=== PATIENT | male | born 2000 | race Caucasian/White ===

== ENCOUNTER 2021-03-31 07:39 | Emergency (ER) | payer MEDICAID ==
[~2021-03-31] VITALS: Ht 177.8 cm; Wt 69.9 kg
[2021-03-31 09:44] VITALS: BP 140/87
[2021-03-31] MEDS ORDERED: TOPUD PO (10:15)
== END 2021-03-31 10:29 | disposition home or self-care (01) ==
LOC: ER 07:39
DX: Z20.822 Contact with and (suspected) exposure to COVID-19 (principal)
CPT/HCPCS: 87426; 99283

== ENCOUNTER 2021-05-13 15:39 | Inpatient (IN) | payer MEDICAID ==
[~2021-05-13] VITALS: Ht 177.8 cm; Wt 66.7 kg
[~2021-05-13 15:39] MED LIST: TOPUD PO
[2021-05-13 16:18] LABS: BASOPHILS % 0.8 % (0.0-2.0); EOSINOPHILS % 1.7 % (0.0-5.0); HEMATOCRIT. 44.3 % (42.0-52.0); HEMOGLOBIN. 15.8 g/dL (14.0-18.0); MEAN CORPUSCULAR VOLUME 87.3 fL (80.0-94.0); MEAN PLATELET VOLUME 7.7 fl (7.4-10.4); MONOCYTES % 8.5 % (2.0-8.0); PLATELET 244 x1000/uL (130-400); RED BLOOD CELL COUNT 5.08 mill/uL (4.7-6.1); RED CELL DISTRIBUTION WIDTH 12.7 % (11.6-14.6)
[2021-05-13 16:22] LABS: CHLORIDE 108 mEq/L (98-107)
[2021-05-13 16:25] LABS: ETHANOL BLOOD < 10 mg/dL
[2021-05-13] MEDS ORDERED: POTASSIUM CHLORIDE 20MEQ TABLET SR PO ONE (17:00)
[2021-05-13 18:02] LABS: *AMPHETAMINES SCREEN URINE NEGATIVE (NEGATIVE); *BARBITURATES SCREEN URINE NEGATIVE (NEGATIVE); *BENZODIAZEPINES SCREEN URINE NEGATIVE (NEGATIVE)
[2021-05-13 18:03] LABS: *COCAINE SCREEN URINE NEGATIVE (NEGATIVE); CANNABINOID URINE SCREEN NEGATIVE (NEGATIVE); METHADONE URINE SCREEN NEGATIVE (NEGATIVE); OPIATES URINE SCREEN NEGATIVE (NEGATIVE); PHENCYCLIDINE URINE SCREEN NEGATIVE (NEGATIVE)
[2021-05-13] MEDS ORDERED: LORAZEPAM 2MG/ML CPJ IV ONE (18:45)
[2021-05-13] MEDS ORDERED: IOHEXOL-350 100 ML BOTTLE ONE ×2 (20:55→23:46)
[2021-05-13 22:30] VITALS: BP 112/51
[2021-05-13] MEDS ORDERED: MAGNESIUM/ALUMINUM HYDROXIDE/SIMETHICONE 30ML UDC PO PRN (22:30)
[2021-05-13] MEDS ORDERED: GUAIFENESIN 200MG/10ML SUGAR FREE UDC PO PRN (22:30)
[2021-05-13] MEDS ORDERED: ONDANSETRON HCL 4MG/2ML INJ IV PRN (22:30)
[2021-05-13] MEDS ORDERED: LORAZEPAM 0.5MG TABLET PO PRN (22:30)
[2021-05-13] MEDS ORDERED: ACETAMINOPHEN 325MG TABLET PO PRN ×2 (22:30)
[2021-05-13] MEDS ORDERED: ZOLPIDEM TARTRATE 5MG TABLET PO PRN (22:30)
[2021-05-13] MEDS ORDERED: DIPHENHYDRAMINE 50MG/ML VIAL IV PRN (22:30)
[2021-05-13] MEDS ORDERED: CLONIDINE 0.1MG TABLET PO PRN (22:30)
[2021-05-14] VITALS (8 sets, daily range): BP systolic 104–123; BP diastolic 50–77
[2021-05-14] MEDS: SODIUM CHLORIDE 0.9% INJ 3ML FLUSH IVF SCH ×3 (06:00→21:06)
[2021-05-14 07:58] LABS: CHLORIDE 109 mEq/L (98-107)
[2021-05-14 08:19] LABS: PHOSPHORUS 3.6 mg/dL (2.5-4.9)
[2021-05-15] VITALS (8 sets, daily range): BP systolic 97–120; BP diastolic 48–60
[2021-05-15] MEDS: SODIUM CHLORIDE 0.9% INJ 3ML FLUSH IVF SCH (06:24)
[2021-05-15 07:29] LABS: BASOPHILS % 0.8 % (0.0-2.0); EOSINOPHILS % 3.3 % (0.0-5.0); HEMATOCRIT. 43.6 % (42.0-52.0); HEMOGLOBIN. 15.3 g/dL (14.0-18.0); LYMPHOCYTES % 19.4 % (20.0-50.0); MEAN CORPUSCULAR HEMOGLOBIN 31.1 pg (28.0-32.0); MEAN CORPUSCULAR VOLUME 88.5 fL (80.0-94.0); MONOCYTES % 9.2 % (2.0-8.0); NEUTROPHILS % 67.3 % (40.0-76.0); PLATELET 241 x1000/uL (130-400); RED BLOOD CELL COUNT 4.93 mill/uL (4.7-6.1)
[2021-05-15 07:35] LABS: CHLORIDE 107 mEq/L (98-107)
[2021-05-24] MEDS ORDERED: ALPR-339 PO (22:57)
== END 2021-05-15 16:45 | disposition home or self-care (01) | DRG 48 ==
LOC: ER 15:39 → 8WST 19:50 → EDBEDREQSVC 19:53 → EDBEDREQ 19:53 → EDBEDREQTM 19:53 → ENRESERV 21:04
PROVIDERS: ADMIT Internal Medicine; ATTEND Internal Medicine
DX: G90.9 Disorder of the autonomic nervous system, unspecified (principal); I42.9 Cardiomyopathy, unspecified; G72.9 Myopathy, unspecified; M94.0 Chondrocostal junction syndrome [Tietze]; E87.6 Hypokalemia; K90.0 Celiac disease; F41.9 Anxiety disorder, unspecified; Z20.822 Contact with and (suspected) exposure to COVID-19; J30.2 Other seasonal allergic rhinitis; F45.8 Other somatoform disorders; Y90.9 Presence of alcohol in blood, level not specified; Z59.00 Homelessness unspecified; Z87.891 Personal history of nicotine dependence; F14.11 Cocaine abuse, in remission; F10.11 Alcohol abuse, in remission
CPT/HCPCS: 36415; 71045; 71275; 80048; 80053; 80305; 80320; 83735; 83880; 84100; 84484; 85025; 85379; 87426; 93005; 93306; 93880; 93970; 99291; J2060; Q9967; G0480

== ENCOUNTER 2021-07-15 12:20 | Emergency (ER) | payer MEDICAID ==
[~2021-07-15] VITALS: Ht 177.8 cm; Wt 73.0 kg
[~2021-07-15 12:20] MED LIST changes: +ALPR-339 PO
[2021-07-15 12:21] VITALS: BP 131/79
== END 2021-07-15 13:52 | disposition left against medical advice (07) ==
LOC: ER 12:20
DX: Z53.21 Procedure and treatment not carried out due to patient leaving prior to being seen by health care provider (principal); I49.9 Cardiac arrhythmia, unspecified
CPT/HCPCS: 93005

== ENCOUNTER 2021-07-15 13:49 | Emergency (ER) | payer MEDICAID ==
[~2021-07-15] VITALS: Ht 180.3 cm; Wt 73.0 kg
[2021-07-15 13:54] VITALS: BP 124/88
== END 2021-07-15 17:12 | disposition home or self-care (01) ==
LOC: ER 13:55
DX: R07.89 Other chest pain (principal)
CPT/HCPCS: 99283